=== PATIENT | female | born 1975 | race Caucasian/White ===

== ENCOUNTER 2021-01-11 04:36 | Emergency (ER) | payer OTHER ==
[2021-01-11 04:58] VITALS: BP 148/86; PULSE 71; TEMP 97.9; BMI 27.6
[2021-01-11] MEDS ORDERED: ACETAMINOPHEN 325 MG TABLET (FP) PO ONE (05:06)
[2021-01-11] MEDS ORDERED: ACETAMINOPHEN INJECTION 100 ML IVPB ONE (05:11)
[2021-01-11] MEDS ORDERED: SODIUM CHLORIDE 1,000 ML IV STA (05:14)
[2021-01-11 05:27] LABS: BASO % 0.4 % (0-2.0); EOS % 1.7 % (0-4.5); HEMOGLOBIN 14.4 GM/dL (10.7-15.3); MCH 30.5 pg (25.7-33.7); MCHC 35.1 g/dl (32.0-36.0); MEAN CELL VOLUME 86.8 fl (80-96); MEAN PLT VOLUME 6.8 fl (7.5-11.1); MONO % 5.9 % (3.8-10.2); PLATELET COUNT 408 10^3/uL (134-434); RBC 4.73 M/mm3 (3.60-5.2); RDW 12.7 % (11.6-15.6)
[2021-01-11] MEDS ORDERED: ACETAMINOPHEN 1000 MG/100 ML VIAL IVPB ONE (05:27)
[2021-01-11 05:45] LABS: CALCIUM 8.8 mg/dL (8.5-10.1)
[2021-01-11 05:46] LABS: BLOOD UREA NITROGEN 17.8 mg/dL (7-18)
[2021-01-11 05:49] LABS: CREATININE 0.6 mg/dL (0.55-1.3)
[2021-01-11 05:50] LABS: BILIRUBIN,TOTAL 0.5 mg/dL (0.2-1); TOT PROT 7.7 g/dl (6.4-8.2)
[2021-01-11] MEDS ORDERED: KETOROLAC TROMETHAMINE 30 MG/1 ML VIAL IVPUSH ONE (06:45)
[2021-01-11 06:46] LABS: EPI CELLS 8 /uL (0-25.1); HYALINE CASTS 1 /uL (0-3.1); PH,URINE 5.5 (5.0-8.0); URINE APPEARANCE CLEAR; URINE BACTERIA 217 /uL (0-1359); URINE BILIRUBIN NEGATIVE (NEGATIVE); URINE COLOR YELLOW; URINE GLUCOSE (UA) NEGATIVE (NEGATIVE); URINE KETONE NEGATIVE (NEGATIVE); URINE LEUK ESTERASE NEGATIVE (NEGATIVE); URINE NITRITE NEGATIVE (NEGATIVE); URINE PROTEIN NEGATIVE (NEGATIVE); URINE RBC 572 /uL (0-23.9); URINE UROBILINOGEN 0.2 mg/dL (0.2-1.0); URINE WBC 13 /uL (0-25.8)
[2021-01-11] MEDS ORDERED: KETOROLAC TROMETHAMINE 30 MG/1 ML VIAL ONE (06:53)
== END 2021-01-11 07:04 | disposition home or self-care (01) ==
LOC: JER 04:36
PROC: 3E0333Z Introduction of Anti-inflammatory into Peripheral Vein, Percutaneous Approach (ICD-10-PCS; principal; 2021-01-11)
PROC: 3E033GC Introduction of Other Therapeutic Substance into Peripheral Vein, Percutaneous Approach (ICD-10-PCS; 2021-01-11)
PROC: 3E0337Z Introduction of Electrolytic and Water Balance Substance into Peripheral Vein, Percutaneous Approach (ICD-10-PCS; 2021-01-11)
DX: N12 Tubulo-interstitial nephritis, not specified as acute or chronic (principal); N20.1 Calculus of ureter; N13.30 Unspecified hydronephrosis
CPT/HCPCS: 36415; 74176-TC; 80053; 81003; 84703; 85025; 87086; 99284-25; J0131

== ENCOUNTER 2021-01-23 04:58 | Day surgery (SDC) | payer OTHER ==
[2021-01-20 11:20] VITALS: BMI 27.8
[2021-01-23] MEDS ORDERED: MIDAZOLAM HCL 2 MG/2 ML SINGLE DOSE VIAL ONE (12:22)
[2021-01-23] MEDS ORDERED: GENTAMICIN SO4 80 MG/2 ML VIAL IVPB ONE (12:30)
[2021-01-23] MEDS ORDERED: ceFAZolin SODIUM 1 GM VIAL IVPB ONE (12:34)
[2021-01-23 15:47] VITALS: BP 120/76; PULSE 81; TEMP 98.2
== END 2021-01-23 15:15 | disposition home or self-care (01) ==
LOC: JASU-SURG 04:58
PROVIDERS: ATTEND Urology
PROC: 0TC08ZZ Extirpation of Matter from Right Kidney, Via Natural or Artificial Opening Endoscopic (ICD-10-PCS; principal; 2021-01-23 12:00)
PROC: 0T768DZ Dilation of Right Ureter with Intraluminal Device, Via Natural or Artificial Opening Endoscopic (ICD-10-PCS; 2021-01-23 12:00)
DX: N13.2 Hydronephrosis with renal and ureteral calculous obstruction (principal)
CPT/HCPCS: 76000-TC-FY; 81025; 94760

== ENCOUNTER 2021-03-06 04:35 | Day surgery (SDC) | payer OTHER ==
[2021-03-01 15:39] VITALS: BMI 27.8
[2021-03-06] MEDS ORDERED: MIDAZOLAM HCL 2 MG/2 ML SINGLE DOSE VIAL ONE (09:45)
[2021-03-06 14:41] VITALS: TEMP 98
[2021-03-06 15:17] VITALS: BP 116/56; PULSE 61
[2021-03-06] MEDS ORDERED: ONDANSETRON 4 MG/2 ML VIAL IVPUSH PRN (15:36)
[2021-03-06] MEDS ORDERED: ACETAMINOPHEN 500 MG TABLET (FP) PO PRN (15:36)
[2021-03-06] MEDS ORDERED: LACTATED RINGERS SOLUTION 1,000 ML IV SCH (15:45)
== END 2021-03-06 15:40 | disposition home or self-care (01) ==
LOC: JASU-SURG 04:35
PROVIDERS: ATTEND Urology
PROC: 0TF4XZZ Fragmentation in Left Kidney Pelvis, External Approach (ICD-10-PCS; principal; 2021-03-06 13:30)
DX: N20.0 Calculus of kidney (principal)
CPT/HCPCS: 81025

== ENCOUNTER 2021-04-17 04:25 | Day surgery (SDC) | payer OTHER ==
[2021-04-13 10:05] VITALS: BMI 27.8
[2021-04-17] MEDS ORDERED: oxyCODONE HCL 5 MG TABLET PO PRN ×2 (13:22)
[2021-04-17] MEDS ORDERED: ONDANSETRON 4 MG/2 ML VIAL IVPUSH PRN (13:22)
[2021-04-17] MEDS ORDERED: LACTATED RINGERS SOLUTION 1,000 ML IV SCH (13:30)
[2021-04-17] MEDS ORDERED: MIDAZOLAM HCL 2 MG/2 ML SINGLE DOSE VIAL ONE (13:44)
[2021-04-17] MEDS ORDERED: PROPOFOL 20 ML ONE (13:48)
[2021-04-17 15:53] VITALS: TEMP 97.2
[2021-04-17 15:56] VITALS: BP 115/72; PULSE 62
== END 2021-04-17 15:56 | disposition home or self-care (01) ==
LOC: JASU-SURG 04:25
PROVIDERS: ATTEND Urology
PROC: 0TF3XZZ Fragmentation in Right Kidney Pelvis, External Approach (ICD-10-PCS; principal; 2021-04-17 13:00)
DX: N20.0 Calculus of kidney (principal)
CPT/HCPCS: 81025

== ENCOUNTER 2023-08-31 21:59 | Emergency (ER) | payer OTHER ==
[2023-08-31 22:09] VITALS: BP 131/73; PULSE 80; RESP 20; TEMP 98.7; BMI 28.6
== END 2023-08-31 23:40 | disposition home or self-care (01) ==
LOC: JERFT 21:59
DX: U07.1 COVID-19 (principal); M79.10 Myalgia, unspecified site; R05.9 Cough, unspecified; R09.89 Other specified symptoms and signs involving the circulatory and respiratory systems; R51.9 Headache, unspecified; R19.7 Diarrhea, unspecified; R68.83 Chills (without fever)
CPT/HCPCS: 0241U-QW; 99283-25